=== PATIENT | male | born 1930 | race Caucasian/White ===

== ENCOUNTER → 2018-01-21 | Outpatient (CLI) | payer OTHER ==
[~2018-01-21] MED LIST: ADULT LOW DOSE81 MG PO; ATENOLOL 50 MG50 M1 PO; COREG CR40 MG PO; COUMADIN 2.5MG2.5 M1 PO; COUMADIN 5 MG TA5 M1 PO; FLECAINIDE ACE100 MG PO; MULTAQ400 MG PO; MULTIVITAMINS PO; NORVASC5 MG PO
== END ==
LOC: RAD 10:19
DX: J98.4 Other disorders of lung (principal); M40.294 Other kyphosis, thoracic region

== ENCOUNTER → 2018-02-17 | Outpatient (CLI) | payer OTHER | LOC: RAD 11:21 | DX: J84.9 Interstitial pulmonary disease, unspecified (principal); M40.294 Other kyphosis, thoracic region; I77.810 Thoracic aortic ectasia ==

== ENCOUNTER → 2018-05-09 | Outpatient (CLI) | payer OTHER ==
--- NOTE | ~2018-05-09 | PFR/MVV ---
[facility] [place] [address] PULMONARY FUNCTION MVV/REPORT Name: LUC PUTNAM Room #: [facility]#: [id number] Admission: 05/09/18 Attend Phys: James Calderon MD Discharge: Date of : 32 Report #: [id number] THIS REPORT FOR: //name// >> SPIROMETRY: (BTPS) Height: in cm Weight: lbs kg Exam Date: PRE-RX POST-RX PRED BEST %PRED BEST %PRED %CHG FVC LITERS . . . . . . FEV1 LITERS . . . . . . FEV1/FVC % . . . . . . GRR12-61% L/Sec . . . . . . PEF L/SEC . . . . . . FEF50/FIF50 UNITLESS . . . . . . MVV L/Min . . . f 1/Min . . . >> LUNG VOLUMES: (BTPS) PRE-RX POST-RX PRED AVG %PRED AVG %PRED %CHG VC Liters . . . . . . TLC Liters . . . . . . RV Liters . . . . . . RV/TLC % . . . . . . FRC PL Liters . . . . . . FRC N2 Liters . . . . . . ERV Liters . . . . . . IC Liters . . . . . . >> DIFFUSION: DLCO ml/Min/mmHg . . . . . . DL Susana ml/Min/mmHg . . . . . . DLCO/VA ml/Min/mmHg . . . . . . VA Liters . . . . . . COMMENTS: COMMENTS: >> RESISTANCE: [facility] [address] [place] [address] PULMONARY FUNCTION MVV/REPORT Name: LUC PUTNAM Room #: [facility]#: [id number] Admission: 05/09/18 Attend Phys: James Calderon MD Discharge: Date of : 32 Report #: [id number] PRE-RX PRED AVG %PRED Raw Total cmH20/L/Sec . . . Raw Insp cmH20/L/Sec . . . Raw Exp cmH20/L/Sec . . . Raw cmH20/L/Sec . . . Gaw L/Sec/cmH20 . . . sRaw cmH20 Sec . . . sGaw l/cmH20 Sec . . . Vtq Liters . . . # = OUTSIDE 95% CONFIDENCE INTERVAL CALIBRATION: PRED: 3.00 ACTUAL: EXP 3.01 INSP 3.02 [facility]-[id number] [facility] [id number] >> INTERPRETATION/IMPRESSION: CC: James Calderon Cecelia Bhatt DATE OF SERVICE: 05/09/2018 SPIROMETRY: FEV1 is 1.68 liters (131%), FVC is 2.06 liters (119%). FEV1/FVC ratio is 82%. Postbronchodilator therapy with no significant response. Lung volumes: Total lung capacity is 4.63 liters (112%). RV is 2.31 liters (105%). Diffusing capacity 41%. IMPRESSION: Pulmonary function is consistent with essentially normal pulmonary function. Diffusing capacity is significantly decreased. By: James Calderon MD /nt
--- NOTE | 2018-05-09 11:26 | NUR ---
Patient was seen in the office for a PFT. While doing his PFT and administering his bronchodilator his O2 was low, 86%. I had the pt take some deep breaths and his O2 returned to 91%. At the conclusion of the test I walked the patient from the RT Department to the front door to monitor his O2 levels. His saturation dropped started to drop, the lowest was 79%. He stated that he has O2 at home that he was using for 5 minutes a day on 3 LPM. I indicated to the patient that while ambulating at home he needed to have his oxygen on at 3LPM. His daughter was involved in the conversation as well and also knows that he was low. Patient indicated that he has an appointment with Dr. Calderon next week. I did go over and talk with Dr. Kvng Brown's MA to confirm he indeed has O2 at home and of his upcoming appointment. I also documented my saturation findings in the notes of the PFT.
== END ==
LOC: CAT 05-06 14:17
DX: S22.009A Unspecified fracture of unspecified thoracic vertebra, initial encounter for closed fracture (principal); J47.9 Bronchiectasis, uncomplicated; J84.10 Pulmonary fibrosis, unspecified; X58.XXXA Exposure to other specified factors, initial encounter; Y93.89 Activity, other specified; Y92.89 Other specified places as the place of occurrence of the external cause; Y99.8 Other external cause status